=== PATIENT | male | born 1980 ===

== ENCOUNTER 2017-11-06 15:40 | Observation (INO) | payer OTHER ==
[2017-11-06] MEDS ORDERED: Sodium Chloride 0.9% 1000 ML 1,000 ML IV STA (16:08)
--- NOTE | 2017-11-06 16:14 | ERPHSYRPT ---
- History of Present Illness Time Seen by Provider: 11/06/17 16:07 Source: patient Exam Limitations: intoxication Patient Subjective Stated Complaint: Pt states "I need to go to [facility]. If I do not, I am afraid I will . Triage Nursing Assessment: Pt alert and oriented X 3, skin Pwd. PT ambulates with an upright wobbly gait. Pt speech slightly slurred. Pt advised that he is not suicidal or homicidal but he did heroin yesterday and alcohol today. Physician History: Pt states, he has been using Heroin for a long time, had 3 beers today, needs help, unable to quit, but denies being suicidal or homicidal, no sign of hallucinations, denies recent injury, fall, headaches, or chest pain, vomiting, other complaints. He is slightly lethargic being intoxicated. He states, he wants to go to [facility]. Timing/Duration: constant Severity of Symptoms-Max: severe Severity of Symptoms-Current: severe Context related to: other (denies) Suicidal thoughts: other (denies) Associated Symptoms: denies symptoms Previous symptoms: same symptoms as today Allergies/Adverse Reactions: No Known Drug Allergies Allergy (Unverified 11/06/17 15:56) Home Medications: No Reportable Medications [No Reported Medications] 11/06/17 [History] Hx Tetanus, Diphtheria Vaccination/Date Given: No Hx Influenza Vaccination/Date Given: Yes Hx Pneumococcal Vaccination/Date Given: No Immunizations Up to Date: Yes - Past Medical History Pertinent Past Medical History: No - Past Surgical History Past Surgical History: Yes Other Surgical History: spleenectomy. appendectomy - Social History Smoking Status: Current every day smoker How long have you smoked: years Exposure to second hand smoke: Yes Drug Use: heroin Patient Lives Alone: Yes - Review of Systems Constitutional: No Symptoms All Other Systems: Unable due to condition - Nursing Vital Signs Nursing Vital Signs: Initial Vital Signs Temperature 97.9 F 11/06/17 15:47 Pulse Rate 92 H 11/06/17 15:47 Respiratory Rate 16 11/06/17 15:47 Blood Pressure 125/90 11/06/17 15:47 O2 Sat by Pulse Oximetry 98 11/06/17 15:47 Pain Scale Pain Intensity 0 - Physical Exam General Appearance: no apparent distress Eyes, Ears, Nose, Throat Exam: normal ENT inspection, pharynx normal Neck Exam: normal inspection, non-tender, supple, No carotid bruit, No JVD Respiratory Exam: normal breath sounds, lungs clear, airway intact, No chest tenderness, No respiratory distress Cardiovascular Exam: regular rate/rhythm, normal heart sounds, normal peripheral pulses, No murmur Gastrointestinal/Abdominal Exam: soft, normal bowel sounds, No tenderness, No distention, No mass, No ecchymosis Extremities Exam: normal inspection Current Suicidality: denies suicide plan Neurological Exam: alert, calm Appearance: disheveled Behavior/Eye Contact/Speech: alert & cooperative Thoughts/Hallucinations: no apparent hallucination Skin Exam: normal color, warm, dry, No rash SpO2 Interpretation: normal SpO2: 98 Oxygen Delivery: Room Air - Course Nursing assessment & vital signs reviewed: Yes EKG Interpreted by Me: RATE (81/min), NORMAL AXIS, NORMAL INTERVALS, NORMAL ST-T Ordered Tests: Active Orders 24 hr Category Date Time Status Dumbwaiter Operator STAT Care 11/06/17 16:08 Active EKG-ER Only STAT Care 11/06/17 16:08 Active IV Insertion STAT Care 11/06/17 16:08 Active ACETAMINOPHEN Stat Lab 11/06/17 16:25 Completed CBC W DIFF Stat Lab 11/06/17 16:25 Completed CMP Stat Lab 11/06/17 16:25 Completed ETHYL ALCOHOL Stat Lab 11/06/17 16:25 Completed MAGNESIUM Stat Lab 11/06/17 16:32 Completed SALICYLATE Stat Lab 11/06/17 16:25 Completed UA W/RFX UR CULTURE Stat Lab 11/06/17 16:08 Ordered Urine Triage Profile Stat Lab 11/06/17 16:08 Ordered Medication Summary Generic Name Dose Route Start Last Admin Trade Name Freq PRN Reason Stop Dose Admin Sodium Chloride 1,000 mls @ 999 mls/hr 11/06/17 16:08 11/06/17 16:25 Sodium Chloride 0.9% 1000 Ml IV 11/06/17 17:08 999 mls/hr .Q1H1M STA Administration Discontinued Medications Generic Name Dose Route Start Last Admin Trade Name Freq PRN Reason Stop Dose Admin Famotidine 20 mg 11/06/17 16:55 Pepcid 20 Mg Vial IV 11/06/17 16:56 STAT ONE Folic Acid 1 mg 11/06/17 16:55 Folate 1 Mg PO 11/06/17 16:56 STAT ONE Sodium Chloride Confirm 11/06/17 16:24 Sodium Chloride 0.9% 1000 Ml Administered 11/06/17 16:25 Dose 1,000 mls @ ud .ROUTE .STK-MED ONE Multivitamins 1 tab 11/06/17 16:55 Theragran Multivitamin PO 11/06/17 16:56 STAT ONE Ondansetron HCl 4 mg 11/06/17 16:55 Zofran 4 Mg/2 Ml Vial IV 11/06/17 16:56 STAT ONE Thiamine HCl 100 mg 11/06/17 16:55 Thiamine 200 Mg/2 Ml IV 11/06/17 16:56 STAT ONE Lab/Rad Data: Laboratory Result Diagrams 11/06/17 16:25 11/06/17 16:25 Laboratory Results 11/06/17 11/06/17 11/06/17 Range/Units 16:32 16:25 16:25 WBC 8.7 (4.0-10.5) K/mm3 RBC 4.81 (4.1-5.6) M/mm3 Hgb 14.7 (12.5-18.0) gm/dl Hct 44.4 (42-50) % MCV 92.3 (78-100) fl MCH 30.6 (26-32) pg MCHC 33.1 (32-36) g/dl RDW 15.2 H (11.5-14.0) % Plt Count 519 H (150-450) K/mm3 MPV 9.4 (6-9.5) fl Gran % 52.0 (36.0-66.0) % Eos # (Auto) 0.09 (0-0.5) Absolute Lymphs (auto) 3.48 (1.0-4.6) Absolute Monos (auto) 0.48 (0.0-1.3) Lymphocytes % 40.1 (24.0-44.0) % Monocytes % 5.5 (0.0-12.0) % Eosinophils % 1.0 (0.00-5.0) % Basophils % 1.4 (0.0-0.4) % Absolute Granulocytes 4.51 (1.4-6.9) Basophils # 0.12 (0-0.4) Sodium 146 H (137-145) mmol/L Potassium 4.0 (3.5-5.1) mmol/L Chloride 103 (98-107) mmol/L Carbon Dioxide 26 (22-30) mmol/L Anion Gap 20.8 H (5-15) MEQ/L BUN 9 (9-20) mg/dL Creatinine 0.56 L (0.66-1.25) mg/dL Estimated GFR > 60.0 ML/MIN Glucose 120 H (74-106) mg/dL Calcium 8.9 (8.4-10.2) mg/dL Magnesium 2.0 (1.6-2.3) mg/dL Total Bilirubin 0.20 (0.2-1.3) mg/dL AST 42 (17-59) U/L ALT 45 (0-50) U/L Alkaline Phosphatase 90 (38-126) U/L Serum Total Protein 7.9 (6.3-8.2) g/dL Albumin 4.6 (3.5-5.0) g/dL Salicylates < 1.0 L (2-20) mg/dL Acetaminophen < 10 L (10-30) ug/ml Ethyl Alcohol 404 H (0-10) mg/dL - Progress Progress: unchanged Progress Note: 11/06/17 17:11 Pt has been calm, cooperative, not agitated, denies any pain or severe nausea, he has been stable. I called Dr Stark, discussed the results with her and this patient's current condition, she agreed to admit him for observation. Discussed with : Lincoln Will see patient in: hospital (observation) Counseled pt/family regarding: lab results, diagnosis - Departure Time of Disposition: 17:14 Departure Disposition: Observation Clinical Impression: Substance abuse Alcohol intoxication Qualifiers: Complication of substance-induced condition: uncomplicated Qualified Code(s): F10.920 - Alcohol use, unspecified with intoxication, uncomplicated Condition: Stable Critical Care Time: No
[2017-11-06] MEDS ORDERED: Sodium Chloride 0.9% 1000 ML 1,000 ML ONE (16:24)
[2017-11-06 16:27] LABS: BASOPHIL % 1.4 % (0.0-0.4); Basophil (Absolute #) 0.12 (0-0.4); Eosinophil (Absolute #) 0.09 (0-0.5); Granulocyte Absolute (ANC) 4.51 (1.4-6.9); Hematocrit 44.4 % (42-50); Hemoglobin 14.7 gm/dl (12.5-18.0); Lymphocyte (Absolute #) 3.48 (1.0-4.6); Lymphocytes % 40.1 % (24.0-44.0); Mean Cell Volume 92.3 fl (78-100); Mean Corpuscular Hemoglobin 30.6 pg (26-32); Mean Corpuscular Hgb Concent. 33.1 g/dl (32-36); Mean Platelet Volume 9.4 fl (6-9.5); Monocyte (Absolute #) 0.48 (0.0-1.3); Monocytes % 5.5 % (0.0-12.0); Platelet Count 519 K/mm3 (150-450); Red Blood Count 4.81 M/mm3 (4.1-5.6); Red Cell Distribution Width 15.2 % (11.5-14.0); White Blood Count 8.7 K/mm3 (4.0-10.5)
[2017-11-06 16:51] LABS: ALBUMIN 4.6 g/dL (3.5-5.0); ALKALINE PHOSPHATASE 90 U/L (38-126); ANION GAP 20.8 MEQ/L (5-15); BLOOD UREA NITROGEN 9 mg/dL (9-20); CHLORIDE 103 mmol/L (98-107); Calcium 8.9 mg/dL (8.4-10.2); Carbon Dioxide 26 mmol/L (22-30); Creatinine 1 0.56 mg/dL (0.66-1.25); Glucose 120 mg/dL (74-106); SGOT/AST 42 U/L (17-59); SGPT/ALT 45 U/L (0-50); SODIUM 146 mmol/L (137-145); Total Protein 7.9 g/dL (6.3-8.2)
[2017-11-06 16:53] LABS: ACETAMINOPHEN < 10 ug/ml (10-30); SALICYLATE < 1.0 mg/dL (2-20)
[2017-11-06] MEDS ORDERED: Zofran 4 MG/2 ML VIAL IV ONE (16:55)
[2017-11-06] MEDS ORDERED: THERAGRAN MULTIVITAMIN PO ONE (16:55)
[2017-11-06] MEDS ORDERED: Pepcid 20 MG VIAL IV ONE (16:55)
[2017-11-06] MEDS ORDERED: FOLATE 1 MG PO ONE (16:55)
[2017-11-06] MEDS ORDERED: THIAMINE 200 MG/2 ML IV ONE (16:55)
[2017-11-06 16:59] LABS: ETHYL ALCOHOL 404 mg/dL (0-10)
[2017-11-06] MEDS ORDERED: Vitamins For Infusion 10 ML INJECTION*** 10 ML, THIAMINE 200 MG/2 ML*** 100 MG, FOLNATE... IV SCH ×4 (17:15)
[2017-11-06] MEDS ORDERED: Zofran 4 MG/2 ML VIAL IV PRN (17:15)
[2017-11-06] MEDS ORDERED: FOLATE 1 MG ONE (18:41)
[2017-11-06] MEDS ORDERED: THERAGRAN MULTIVITAMIN ONE (18:41)
[2017-11-06] MEDS: Pepcid 20 MG VIAL IV SCH (19:52)
[2017-11-06] MEDS: Ativan 2 MG/1 ML VIAL IV PRN (20:01)
[2017-11-06 20:58] LABS: Appearance CLEAR (CLEAR); Bilirubin NEGATIVE (NEGATIVE); Blood NEGATIVE Ery/ul (0-5); Glucose NEGATIVE (NEGATIVE); Ketones NEGATIVE (NEGATIVE); Leukocyte Esterase NEGATIVE (NEGATIVE); Nitrite NEGATIVE (NEGATIVE); Protein,Urine Dip NEGATIVE (Negative); Specific Gravity 1.015 (1.005-1.025); Urobilinogen NORMAL mg/dL (0-1)
[2017-11-06 21:14] LABS: Amphetamine,Urine NEGATIVE (NEGATIVE); Barbiturate,Urine NEGATIVE (NEGATIVE); Benzodiazepine,Urine NEGATIVE (NEGATIVE); Cocaine,Urine NEGATIVE (NEGATIVE); Methadone,Urine NEGATIVE (NEGATIVE); Opiate,Urine NEGATIVE (NEGATIVE); PCP,Urine NEGATIVE (NEGATIVE); THC,Urine NEGATIVE (NEGATIVE)
[2017-11-06] MEDS ORDERED: Nicoderm CQ 21 MG TOP ONE (21:25)
[2017-11-06] MEDS ORDERED: REMERON 30 MG PO SCH (22:00)
[2017-11-07] MEDS: Sodium Chloride 0.9% 1000 ML 1,000 ML IV SCH ×2 (01:51→11:52)
[2017-11-07 05:53] LABS: BASOPHIL % 1.7 % (0.0-0.4); Basophil (Absolute #) 0.13 (0-0.4); Eosinophil % 2.9 % (0.00-5.0); Eosinophil (Absolute #) 0.22 (0-0.5); Granulocyte Absolute (ANC) 2.39 (1.4-6.9); Granulocytes % 30.9 % (36.0-66.0); Hematocrit 38.6 % (42-50); Hemoglobin 12.7 gm/dl (12.5-18.0); Lymphocytes % 53.2 % (24.0-44.0); Mean Corpuscular Hemoglobin 30.6 pg (26-32); Mean Corpuscular Hgb Concent. 32.9 g/dl (32-36); Mean Platelet Volume 9.7 fl (6-9.5); Monocyte (Absolute #) 0.87 (0.0-1.3); Monocytes % 11.3 % (0.0-12.0); Platelet Count 490 K/mm3 (150-450); Red Blood Count 4.15 M/mm3 (4.1-5.6); Red Cell Distribution Width 14.9 % (11.5-14.0); White Blood Count 7.7 K/mm3 (4.0-10.5)
[2017-11-07 06:20] LABS: ALBUMIN 3.3 g/dL (3.5-5.0); ALKALINE PHOSPHATASE 60 U/L (38-126); ANION GAP 13.2 MEQ/L (5-15); BLOOD UREA NITROGEN 8 mg/dL (9-20); CHLORIDE 105 mmol/L (98-107); Carbon Dioxide 26 mmol/L (22-30); Creatinine 1 0.58 mg/dL (0.66-1.25); Glucose 91 mg/dL (74-106); Potassium 3.7 mmol/L (3.5-5.1); SGOT/AST 30 U/L (17-59); SGPT/ALT 32 U/L (0-50); SODIUM 141 mmol/L (137-145)
[2017-11-07 07:07] VITALS: O2SAT 96
[2017-11-07] MEDS: Ativan 2 MG/1 ML VIAL IV PRN (08:02)
[2017-11-07] MEDS ORDERED: TYLENOL 325 MG PO PRN (08:51)
--- NOTE | 2017-11-07 09:35 | HP ---
HISTORY OF PRESENT ILLNESS: This is a 36 year-old patient who presented to the emergency department with alcohol intoxication. The patient this morning reports he has had a problem with alcohol for the past 15 years. He thinks he would like to go to [facility] in [place]. He states that he just left there two weeks ago. His plan would be go there and then go to another facility after that to try to keep from relapsing. He states he has had DT's before but never had seizures. He reports he buys his own alcohol. He thinks he drank five - 25 ounces of malt liquor yesterday. 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 The patient denies any abdominal pain, denies ever having any problems with his liver in the past. He denies use of any illicit drugs yesterday. REVIEW OF SYSTEMS: He denies chest pain. No shortness of breath. No problems urinating. Good appetite. No nausea or vomiting. No constipation. No diarrhea. No rashes. No fevers. PAST MEDICAL HISTORY: Alcohol abuse. History of splenomegaly status post splenectomy. PAST SURGICAL HISTORY: Splenectomy 22 years ago. MEDICATIONS: He got these from [facility]. He reports he has no primary care physician. Folic acid 1 mg p.o. daily, mirtazapine 15 mg p.o. q.h.s., nicotine patch 21 mg topically daily, Zyprexa 2.5 mg p.o. t.i.d. PRN anxiety, propranolol 20 mg p.o. t.i.d. PRN anxiety, thiamine 100 mg p.o. daily, trazodone 50 mg p.o. q.h.s. ALLERGIES: NKDA. SOCIAL HISTORY: The patient also reports illicit drug use. Alcohol abuse as above. He reports he smokes one half pack per day. He lives alone. FAMILY HISTORY: Noncontributory. PHYSICAL EXAMINATION: VITAL SIGNS: Temperature current 98.2F, temperature max 98.7F, heart rate 69 to 128 currently 74, respiratory rate 16 to 18, blood pressure 99 to 141 over 61 to 80, weight 76.6 kg. Oxygen saturation 92 to 98% on room air. GENERAL: The patient is alert and talkative, sitting up in no acute distress. CVS: He has a regular rate and rhythm. No murmurs, gallops or rubs. CHEST: Clear to auscultation bilaterally. No crackles. He has a few expiratory wheezes in the right lung field. ABDOMEN: Soft, nontender, nondistended with no hepatomegaly. Normal bowel sounds. EXTREMITIES: No clubbing, cyanosis or edema. He has a tattoo on his left hand. LABORATORY DATA AND TESTS: On admission his sodium was 146 and repeat sodium 141. Albumin low at 2.3. White blood cell count is normal. Hematocrit 38.6, PLT count 490,000. Urine tox negative on admission. Ethanol alcohol level was 404. UA negative. ASSESSMENT AND PLAN: 1) ALCOHOL INTOXICATION, NOW RESOLVED: The patient is requesting possible transfer to [facility]. I have asked the discharge planners to look into this which they are doing. 2) HISTORY OF ALCOHOL ABUSE: The patient states he is motivated to quit using alcohol and drugs. 3) HISTORY OF ILLICIT DRUG USE.
[2017-11-07] MEDS ORDERED: FOLATE 1 MG PO SCH (10:00)
[2017-11-07] MEDS ORDERED: VITAMIN B-1 100 MG PO SCH (10:00)
[2017-11-07] MEDS ORDERED: Nicoderm CQ 21 MG TOP SCH (10:00)
[2017-11-07] MEDS: Pepcid 20 MG VIAL IV SCH (10:48)
[2017-11-07 12:20] VITALS: BP 111/69; PULSE 70
== END 2017-11-07 14:50 | disposition home or self-care (01) ==
LOC: ED 15:40 → MED SURG 18:30
PROVIDERS: ADMIT Internal Medicine; ATTEND Internal Medicine
DX: F10.129 Alcohol abuse with intoxication, unspecified (principal); F19.90 Other psychoactive substance use, unspecified, uncomplicated; F41.9 Anxiety disorder, unspecified
CPT/HCPCS: 36000; 36415; 80053; 80307; 81002; 83735; 85025; 93005; 93041; 93268; 96360; 96374; 96375; 99285; G0481; 96365; 99284; J2060; J2405; A9270-GY; G0378; G0480